=== PATIENT | female | born 1980 | race Two or more races ===

== ENCOUNTER 2023-06-21 11:56 | Emergency (ER) | payer OTHER ==
[2023-06-21 12:35] VITALS: BP 129/92; PULSE 85; RESP 16; TEMP 98.4; BMI 29.2
== END 2023-06-21 12:56 | disposition home or self-care (01) ==
LOC: FER 11:56
DX: H92.02 Otalgia, left ear (principal); J06.9 Acute upper respiratory infection, unspecified; R50.9 Fever, unspecified; Z20.822 Contact with and (suspected) exposure to COVID-19
CPT/HCPCS: 0241U-QW; 99283-25